=== PATIENT | female | born 1960 | race Caucasian/White ===

== ENCOUNTER 2025-09-19 13:12 | Emergency (ER) | payer MEDICARE, OTHER, SELFPAY ==
[2025-09-19 13:15] VITALS: BP 113/77
--- NOTE | 2025-09-19 14:30 | ED.GENMED ---
History of Present Illness
<Cass Nguyen PA-C - Last Filed: 09/20/25 00:11>
General
Chief Complaint: Eye Problems
Source: patient
Exam Limitations: none
Time Seen by Provider: 09/19/25 13:45
Nursing documentation reviewed up to this point in time: agreed with
History of Present Illness
History of Present Illness:
Patient is a 65-year-old female who presents to the emergency department with 1 week of visual changes in right eye. Patient states 8 days ago she woke up with flashes/floaters in the periphery of her right vision. She states that over the past
week she has had a progressively worsening black line across her vision. She states the line has been slowly becoming thicker leading to decreased vision. Her left eye seems unaffected. She also reports associated pain in her right eye as well as
headache.
Patient denies any fever or chills. No neck pain. No numbness/tingling or weakness in extremities. No ataxia or dizziness. No diplopia. No recent trauma. She does not wear contact lenses.
She was seen in an urgent care facility in her home state of [place] when symptoms began however left prior to being seen due to long wait times. [place] daughter who recommended that she come to the emergency department
for further evaluation.
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 She states that this sat behind her right eye. She has had normal MRIs since this.
Review of Systems
<Cass Nguyen PA-C - Last Filed: 09/20/25 00:11>
Review of Systems
Allergies reviewed?: Yes
All Other Systems: ROS reviewed and negative except as documented in HPI and ROS
Phy Exam
<Cass Nguyen PA-C - Last Filed: 09/20/25 00:11>
Physical Exam
Physical Exam:
Vitals: Patient's vital signs are stable. Afebrile
General: Patient is well appearing, no acute distress
Skin: Warm and dry, no rashes or lesions
Head: Normocephalic, atraumatic. No temporal artery tenderness bilaterally
NECK : No cervical lymphadenopathy. Neck is supple. No meningismus, no nuchal rigidity.
Eyes: Visual Acuity: R 20/50 without correction, L 20/50 without correction, B/L 20/40 without correction. No proptosis bilaterally. No periorbital swelling, erythema, or tenderness bilaterally. No chemosis, injection, or exudate bilaterally. Cornea
is clear without opacities. Did not tolerate funduscopic exam
Throat: Protecting airway
Neck: Normal ROM, no cervical spine tenderness, no meningismus
Cardiac: Regular rate and rhythm, no murmurs.
Pulm: Normal respiratory effort, no wheezes, rales, rhonchi heard on exam
.
Abdomen: No abdominal tenderness.
Extremities: No evidence of cyanosis or edema
Neuro: AAOx3. CN II-XII grossly intact on exam. No facial droop or asymmetry. Strength 5/5 in bilateral upper and lower extremities. No focal neurologic deficits.
Psychiatric: Normal affect.
Course
<Cass Nguyen PA-C - Last Filed: 09/20/25 00:11>
Orders/Labs/Results
Orders:
Orders
09/19/25 14:30
CT Head & Neck Angio W/wo IV Urgent
Comment:
Reason For Exam: right sided vision loss and pain
09/19/25 14:35
Acetaminophen [Tylenol] 1,000 mg PO NOW STA
09/19/25 14:44
CRP [C-Reactive Protein] Urgent
Complete Blood Count/With Diff Urgent
Comprehensive Metabolic Panel Urgent
ESR [Erythrocyte Sed Rate] Urgent
09/19/25 16:18
Ondansetron Injectable [Zofran] 4 mg .ROUTE .[facility]
09/19/25 16:23
Ondansetron Injectable [Zofran] 4 mg IV NOW STA
09/19/25 18:51
Visual Acuity- Treatment ONCE
Abnormal Lab Results
09/19/25
14:44
RBC 3.94 L 10^6/uL
(4.20-5.40)
Hgb 11.7 L g/dL
(12.0-16.0)
Hct 34.7 L %
(37.0-47.0)
Absolute Monos (auto) 0.8 H 10^3/uL
(0.1-0.6)
ESR 21 H mm/hour
(0-20)
Chloride 108 H mmol/L
(98-107)
BUN 18 H mg/dl
(7-17)
09/19/25 14:44
09/19/25 14:44
Vital Signs
Initial and Last Documented VS:
Initial Vital Signs
Temp Pulse Resp BP Pulse Ox
98.7 F 71 16 113/77 98
09/19/25 13:15 09/19/25 13:15 09/19/25 13:15 09/19/25 13:15 09/19/25 13:15
Last Documented Vital Signs
Temp Pulse Resp BP Pulse Ox
98.7 F 71 18 99/61 96
09/19/25 13:15 09/19/25 13:15 09/19/25 18:00 09/19/25 19:00 09/19/25 18:47
<Alfredo Howell, DO - Last Filed: 09/19/25 18:05>
Orders/Labs/Results
Orders:
Orders
09/19/25 14:30
CT Head & Neck Angio W/wo IV Urgent
Comment:
Reason For Exam: right sided vision loss and pain
09/19/25 14:35
Acetaminophen [Tylenol] 1,000 mg PO NOW STA
09/19/25 14:44
CRP [C-Reactive Protein] Urgent
Complete Blood Count/With Diff Urgent
Comprehensive Metabolic Panel Urgent
ESR [Erythrocyte Sed Rate] Urgent
09/19/25 16:18
Ondansetron Injectable [Zofran] 4 mg .ROUTE .[facility]
09/19/25 16:23
Ondansetron Injectable [Zofran] 4 mg IV NOW STA
09/19/25 18:51
Visual Acuity- Treatment ONCE
Abnormal Lab Results
09/19/25
14:44
RBC 3.94 L 10^6/uL
(4.20-5.40)
Hgb 11.7 L g/dL
(12.0-16.0)
Hct 34.7 L %
(37.0-47.0)
Absolute Monos (auto) 0.8 H 10^3/uL
(0.1-0.6)
ESR 21 H mm/hour
(0-20)
Chloride 108 H mmol/L
(98-107)
BUN 18 H mg/dl
(7-17)
09/19/25 14:44
09/19/25 14:44
Vital Signs
Initial and Last Documented VS:
Initial Vital Signs
Temp Pulse Resp BP Pulse Ox
98.7 F 71 16 113/77 98
09/19/25 13:15 09/19/25 13:15 09/19/25 13:15 09/19/25 13:15 09/19/25 13:15
Last Documented Vital Signs
Temp Pulse Resp BP Pulse Ox
98.7 F 71 18 99/61 96
09/19/25 13:15 09/19/25 13:15 09/19/25 18:00 09/19/25 19:00 09/19/25 18:47
<Cass Nguyen PA-C - Last Filed: 09/20/25 00:11>
MDM/Problems Addressed
Differential Diagnosis Includes:
Not limited to: Ocular migraine, optic neuritis, giant cell arteritis, retinal detachment, vitreous detachment, ischemic optic neuropathy, etc.
MDM/Problems Addressed:
65-year-old female with one week of progressive right sided vision loss along with headache and eye pain. Describes flashers in peripheral vision of right eye eight days ago, which were followed by progressive loss of upper visual field in right
eye. She reports pressure type headache behind right eye. No other neurological symptoms.
Vitals as above. On exam, patient in no distress. She does have an isolated upper visual field cut in right eye. Pupils reactive. No scleral injection. No periorbital edema or proptosis. No temporal artery tenderness. Neurologically intact.
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 Unclear if this could be related.
Differential broad. Considered possible giant cell arteritis versus atypical optic neuritis. Possible atypical ocular migraine Considered retinal detachment, however with associated pain, this was thought to be less likely.
I did discuss with ophthalmology who agreed that symptoms vague and not completely consistent with optic neuritis or retinal detachment.
No evidence of acute angle closure glaucoma.
Initial work up including basic labs, inflammatory markers, CTA head/neck � all without clinically significant abnormalities. I did give patient a dose of Tylenol for headache.
On reassessment, her headache has improved almost completely. She only reports a very mild pressure behind right eye. She continues to describe this black line which is progressing down her right visual field.
Now that pain has resolved � symptoms more consistent with possibly slowly progressing retinal detachment.
After discussion with ophthalmology, given it is a weekend, will discuss with [facility] for recommendations as she will likely require urgent ophthalmic evaluation.
Update: I discussed case with resident Cristian at [facility]. He agrees that patient would benefit from ophthalmic evaluation. Given symptoms have been ongoing for eight days � no indication for emergent evaluation this evening. Patient can
present to [facility] tomorrow a.m.
I discussed this with patient who is agreeable with plan. She states that her daughter can drive her to [facility] in the morning. Her symptoms remain improved at this time.
Advised very strict return precautions. Patient expressed verbal understanding and comfortable with plan.
Chronic conditions affecting care:
History of benign brain tumor
Acute Exacerbation and/or Progression of Chronic Illness:
N/A
<Cass Nguyen PA-C - Last Filed: 09/20/25 00:11>
*Radiology
Radiology exam reviewed: radiology read reviewed
*Pulse Oximetry
SaO2: 98
Oxygen Mode of Delivery: Room air
Patient hypoxic: no
*EKG
Interpreted by ED Provider?: NA
*Ratoprinter Interpretation
Rate: Ratoprinter- N/A
*Critical Care Note
Total Time (30-74mins, 75-104mins- exclusive of procedures): Not Applicable
<Cass Nguyen PA-C - Last Filed: 09/20/25 00:11>
Patient Management
Discussion with other providers: Machine Taper (Case discussed with ophthalmology)
ED Attending Note
<Cass Nguyen PA-C - Last Filed: 09/20/25 00:11>
-
Portions of this chart may have been created with voice recognition software.� Occasional wrong word or��sound alike� substitutions may have occurred due to the inherent limitations of voice recognition software.
<Alfredo Howell DO - Last Filed: 09/19/25 18:05>
ED Attending Note
Patient seen and examined by attending physician: Yes
I performed the substantive portion of visit, reviewed & personally made and approve the management plan that is documented in note by myself or RONNY.: Yes
ED Attending Note:
I evaluated the patient at bedside. The patient reports visual disturbance to the upper portion of the right eye over the past 7 days. She states she has had a tumor removed around 10 years ago at [facility]. She lives in [place]. She has no
extremity involvement. Will obtain imaging.
Discharge Plan
Departure
Patient Disposition: Home (Routine Discharge)
Date of Disposition: 09/19/25
Time of Disposition: 19:23
Patient with high blood pressure during this ER visit?: No
Condition: Good
Discharge Problem:
Visual field defect of right eye
Referrals:
UNKNOWN - PT DOES,NOT KNOW [Family Provider]
Activity Restrictions/Additional Instructions:
RETURN TO THE EMERGENCY DEPARTMENT WITH ANY FEVER, SEVERE HEADACHE, REDNESS, SWELLING, OR PAIN IN THE RIGHT EYE, COMPLETE LOSS OF VISION, DIZZINESS, WORSENING IN CURRENT SYMPTOMS, OR ANY OTHER CONCERNS
- As discussed your workup today in the emergency department showed no acute findings on lab work or CTA head/neck. However, there is concern that you may have a retinal detachment
- This was discussed with one of physicians at [facility] and we have agreed that you will present there tomorrow morning for complete ophthalmologic workup.
Monitor your symptoms closely and return to the emergency department with any acute worsening/new symptoms or any other concerns
Interventions
Interventions:
*Risk Screen - Suicide Last Done: 09/19/25 13:15
*General Assessment Last Done: 09/19/25 13:15
*Neglect/Abuse Screening Last Done: 09/19/25 13:15
*ED- Fall Risk Assessment Last Done: 09/19/25 13:15
*ED COVID-19 Vaccine History Last Done: 09/19/25 13:15
*ED Influenza Vaccine History Last Done: 09/19/25 13:15
*Nursing Disposition Last Done: 09/19/25 19:51
Discharge Date and Time
Discharge Date/Time: 09/19/25 19:51
Print Language: JAPANESE
[2025-09-19] MEDS: TYLENOL 1000 MG PO (14:38)
[2025-09-19 14:55] VITALS: BMI 23.6
[2025-09-19 15:02] LABS: Hematocrit 34.7 % (37.0-47.0); Hemoglobin 11.7 g/dL (12.0-16.0); Mean Corp Hgb Conc. 33.7 g/dL (33.0-37.0); Mean Corpuscular Volume 88.1 fL (81.0-99.0); Nucleated Red Blood Cells % 0 %; Platelet Count 332 10^3/uL (130-400); Red Cell Dist. Width 14.0 % (11.5-14.5)
[2025-09-19 15:24] LABS: ALT (SGPT) 14 U/L (0-35); AST (SGOT) 17 U/L (14-36); Albumin 4.4 g/dl (3.5-5.0); Alkaline Phosphatase 60 U/L (38-126); Blood Urea Nitrogen 18 mg/dl (7-17); Calcium 9.5 mg/dl (8.4-10.2); Carbon Dioxide 24 mmol/L (22-30); Chloride 108 mmol/L (98-107); Estimated Creatinine Clearance 65 ml/min; Glucose 90 mg/dl (70-99); Sodium 138 mmol/L (135-145); Total Protein 7.7 g/dl (6.3-8.2); eGFR > 60.00
[2025-09-19 15:27] LABS: C-Reactive Protein < 5.00 mg/L (0.0-10.00)
[2025-09-19 15:30] LABS: Potassium 4.0 mmol/L (3.5-5.1)
[2025-09-19] MEDS: ZOFRAN 4 MG IV (16:24)
[2025-09-19 18:29] VITALS: BP 102/70
[2025-09-19 19:00] VITALS: BP 99/61
== END 2025-09-19 19:51 | disposition home or self-care (01) ==
LOC: EMR 13:12
PROVIDERS: Physician Assistant; EMERGENCY PHYSICIAN Emergency Medicine
DX: H53.451 Other localized visual field defect, right eye (principal); R51.9 Headache, unspecified; Z86.011 Personal history of benign neoplasm of the brain
CPT/HCPCS: 96374; 99284; 70496; 70498; 80053; 85025; 85652; 86140; Q9967